=== PATIENT | male | born 1955 | race Caucasian/White ===

== ENCOUNTER 2016-10-13 15:09 | Emergency (ER) | payer MEDICARE ==
[2016-10-13] MEDS ORDERED: Aspirin 81 MG Tab.Chew PO ONE (15:16)
[2016-10-13] MEDS ORDERED: Sodium Chloride 0.9% 10 ML Syringe FLUSH PRN (15:16)
--- NOTE | 2016-10-13 16:19 | CR ---
Chest: Portable view of the chest was obtained. Comparison: Previous chest x-ray of 11/16/12. Heart size and mediastinum are normal. Lungs are clear. Surgical clips are seen overlying the left lung apex. Bony structures are grossly intact. Impression: 1. Incidental finding. Nothing acute is identified on portable chest x-ray. Diagnostic code #2
[2016-10-13] MEDS ORDERED: HYDROmorphone 1 MG/ML Syringe IVPUSH ONE (17:07)
--- NOTE | 2016-10-13 17:47 | EDM.PDOC ---
ED HPI GENERAL MEDICAL PROBLEM - General Chief Complaint: Chest Pain Stated Complaint: HIGH BP/CHEST PAIN Time Seen by Provider: 10/13/16 15:12 Source of Information: Reports: Patient History Limitations: Reports: No Limitations - History of Present Illness INITIAL COMMENTS - FREE TEXT/NARRATIVE: The patient presents with left shoulder pain that stared earlier today. He got lightheaded and a little short of breath when it happened. He also has high blood pressure and a headache. He has chronic headaches from a work injury years ago. He has been treated with metoprolol for his HTN but that made him feel bad. He is now on norvasc 2 times per day. He has been getting some edema in his legs from that. He did lift a home health provider and that may have caused the pain. He has no fever, chills, cough, nausea, vomiting or abdominal pain. Onset: Sudden Duration: Hour(s): Location: Reports: Upper Extremity, Left (shoulder) Quality: Reports: Sharp Severity: Moderate Improves with: Reports: None Worsens with: Reports: None Associated Symptoms: Reports: Shortness of Breath. Denies: Chest Pain, Cough, Headaches, Nausea/Vomiting Treatments MEDICAL MANAGER: Reports: NSAIDS Headache Pain Score (Numeric/FACES): 5 - Related Data Allergies Allergy/AdvReac Type Severity Reaction Status Date / Time prochlorperazine Allergy Other Verified 10/13/16 15:28 [From Compazine] Home Meds: Home Meds Carboxymethylcellulos/Glycerin [Refresh Optive Gel Eye Drops] 1 drop EYELF QID 10/13/16 [History] Hydrochlorothiazide 25 mg PO DAILY #30 tablet 10/13/16 [Rx] Hydrocodone/Acetaminophen [[place] 7.5-325 Tablet] 1 tab PO Q8H PRN 10/13/16 [ History] Ibuprofen [Motrin] 800 mg PO Q8H PRN 10/13/16 [History] Lidocaine 5% [Lidoderm 5%] 1 patch TOP DAILY 10/13/16 [History] Zolpidem [Ambien] 10 mg PO BEDTIME PRN 10/13/16 [History] amLODIPine [Norvasc] 100 mg PO DAILY 10/13/16 [History] traMADol [Ultram] 50 mg PO Q8H PRN 10/13/16 [History] Past Medical History HEENT History: Reports: Impaired Vision - Past Surgical History HEENT Surgical History: Reports: Other (See Below) Other HEENT Surgeries/Procedures: eye reconstruction Neurological Surgical History: Reports: Other (See Below) Other Neurological Surgeries/Procedures: craniotomy Social & Family History - Tobacco Use Smoking Status *Q: Never Smoker - Caffeine Use Caffeine Use: Reports: Coffee - Recreational Drug Use Recreational Drug Use: No ED ROS GENERAL - Review of Systems Review Of Systems: See Below Constitutional: Reports: No Symptoms HEENT: Reports: No Symptoms Respiratory: Reports: No Symptoms Cardiovascular: Reports: No Symptoms Endocrine: Reports: No Symptoms GI/Abdominal: Reports: No Symptoms : Reports: No Symptoms Musculoskeletal: Reports: Shoulder Pain (left) Skin: Reports: No Symptoms ED EXAM, GENERAL - Physical Exam Exam: See Below Exam Limited By: No Limitations General Appearance: Alert, No Apparent Distress Ears: Normal External Exam Nose: Normal Inspection Head: Atraumatic, Normocephalic Neck: Normal Inspection Respiratory/Chest: No Respiratory Distress, Lungs Clear, Normal Breath Sounds Cardiovascular: Regular Rate, Rhythm, No Edema, No Murmur GI/Abdominal: Soft, Non-Tender, No Organomegaly, No Mass Back Exam: Normal Inspection Extremities: Normal Inspection Neurological: Alert, Oriented, No Motor/Sensory Deficits EKG INTERPRETATION EKG Date: 10/13/16 Time: 15:17 Rhythm: NSR Rate (Beats/Min): [address] [place]: Normal P-Wave: Present QRS: Normal ST-T: Normal QT: Normal Course - Vital Signs Last Recorded V/S: Last Vital Signs Temp 98.2 F 10/13/16 15:25 Pulse 80 10/13/16 17:50 Resp 15 10/13/16 17:50 BP 163/98 H 10/13/16 17:50 Pulse Ox 97 10/13/16 17:50 - Orders/Labs/Meds Orders: Active Orders 24 hr Category Date Time Status Cardiac Monitoring [RC] . DIRECTED Care 10/13/16 15:17 Active EKG Documentation Completion [RC] STAT Care 10/13/16 15:17 Active Peripheral IV Care [RC] . DIRECTED Care 10/13/16 15:17 Active Sodium Chloride 0.9% [Saline Flush] Med 10/13/16 15:16 Active 10 ml FLUSH ASDIRECTED PRN Peripheral IV Insertion Adult [OM.PC] Stat Oth 10/13/16 15:16 Ordered Medication Orders Sodium Chloride (Saline Flush) 10 ml FLUSH ASDIRECTED PRN PRN Reason: Keep Vein Open Last Admin: 10/13/16 16:03 Dose: 10 ml Labs: Laboratory Tests 10/13/16 10/13/16 10/13/16 Range/Units 15:20 15:20 17:50 WBC 2.53 L (4.23-9.07) K/mm3 RBC 4.78 (4.63-6.08) M/mm3 Hgb 14.6 (13.7-17.5) gm/L Hct 41.3 (40.1-51.0) % MCV 86.4 (79.0-92.2) fl MCH 30.5 (25.7-32.2) pg MCHC 35.4 (32.2-35.5) g/dl RDW Std Deviation 39.7 (35.1-43.9) fL Plt Count 134 L (163-337) K/mm3 MPV 9.5 (9.4-12.3) fl Neut % (Auto) 59.6 (34.0-67.9) % Lymph % (Auto) 26.1 (21.8-53.1) % [place] % (Auto) 12.3 H (5.3-12.2) % Eos % (Auto) 1.2 (0.8-7.0) Baso % (Auto) 0.4 (0.1-1.2) % Neut # (Auto) 1.51 L (1.78-5.38) K/mm3 Lymph # (Auto) 0.66 L (1.32-3.57) K/mm3 [place] # (Auto) 0.31 (0.30-0.82) K/mm3 Eos # (Auto) 0.03 L (0.04-0.54) K/mm3 Baso # (Auto) 0.01 (0.01-0.08) K/mm3 Manual Slide Review Abnormal smear Sodium 140 (136-145) mEq/L Potassium 3.6 (3.5-5.1) mEq/L Chloride 105 (98-107) mEq/L Carbon Dioxide 26 (21-32) mEq/L Anion Gap 12.6 (5-15) BUN 13 (7-18) mg/dL Creatinine 1.1 (0.7-1.3) mg/dL Est Cr Clr Drug Dosing 79.36 mL/min Estimated GFR (MDRD) > 60 (>60) mL/min BUN/Creatinine Ratio 11.8 L (14-18) Glucose 125 H (74-106) mg/dL Calcium 8.9 (8.5-10.1) mg/dL Total Bilirubin 0.3 (0.2-1.0) mg/dL AST 32 (15-37) U/L ALT 47 (16-63) U/L Alkaline Phosphatase 77 (46-116) U/L Troponin I < 0.017 < 0.017 (0.00-0.056) ng/mL Total Protein 7.1 (6.4-8.2) g/dl Albumin 3.9 (3.4-5.0) g/dl Globulin 3.2 gm/dL Albumin/Globulin Ratio 1.2 (1-2) Meds: Medications Generic Name Dose Route Start Last Admin Trade Name Freq PRN Reason Stop Dose Admin Sodium Chloride 10 ml 10/13/16 15:16 10/13/16 16:03 Saline Flush FLUSH 10 ml ASDIRECTED PRN Administration Keep Vein Open Discontinued Medications Generic Name Dose Route Start Last Admin Trade Name Freq PRN Reason Stop Dose Admin Aspirin 324 mg 10/13/16 15:16 10/13/16 16:02 Aspirin PO 10/13/16 15:17 324 mg ONETIME ONE Administration Hydromorphone HCl 1 mg 10/13/16 17:07 10/13/16 17:18 Dilaudid IVPUSH 10/13/16 17:08 1 mg ONETIME ONE Administration - Re-Assessments/Exams Free Text/Narrative Re-Assessment/Exam: 10/13/16 18:54 I ordered an EKG, labs, CXR, and aspirin. His EKG shows a NSR with no acute changes. His CXR looks good. His WBC was low at 2.53. His glucose was 125 but the rest of the CMP looks good. His troponin is negative. He feels better. I did a repeat troponin and it is negative. I will put him on some HCTZ for the blood pressure. Departure - Departure Time of Disposition: 17:45 Disposition: Home, Self-Care 01 Condition: Good Clinical Impression: Left shoulder pain Qualifiers: Chronicity: acute Qualified Code(s): M25.512 - Pain in left shoulder Hypertension Qualifiers: Hypertension type: essential hypertension Qualified Code(s): I10 - Essential ( primary) hypertension Prescriptions: Hydrochlorothiazide 25 mg PO DAILY #30 tablet Instructions: Shoulder Pain, Hypertension Referrals: Garfield Arnold MD [Primary Care Provider] - 1 Week Forms: ED Department Discharge Additional Instructions: Take the hydrochlorothiazide daily. Keep taking your other medications. Please return if you are worse. - My Orders Last 24 Hours: My Active Orders 10/13/16 15:16 Sodium Chloride 0.9% [Saline Flush] 10 ml FLUSH ASDIRECTED PRN Peripheral IV Insertion Adult [OM.PC] Stat 10/13/16 15:17 Cardiac Monitoring [RC] . DIRECTED EKG Documentation Completion [RC] STAT Peripheral IV Care [RC] . DIRECTED - Assessment/Plan Last 24 Hours: My Active Orders 10/13/16 15:16 Sodium Chloride 0.9% [Saline Flush] 10 ml FLUSH ASDIRECTED PRN Peripheral IV Insertion Adult [OM.PC] Stat 10/13/16 15:17 Cardiac Monitoring [RC] . DIRECTED EKG Documentation Completion [RC] STAT Peripheral IV Care [RC] . DIRECTED
[2016-10-13 17:50] VITALS: BP 163/98
== END 2016-10-13 17:55 | disposition home or self-care (01) ==
LOC: JD.ED 15:09
DX: M25.512 Pain in left shoulder (principal); I10 Essential (primary) hypertension; Z79.899 Other long term (current) drug therapy; Z98.890 Other specified postprocedural states; Z88.8 Allergy status to other drugs, medicaments and biological substances
CPT/HCPCS: 36415; 71010; 80053; 84484; 85025; 93005; 96374; 99285; A9270; J1170; J7050; 99284